=== PATIENT | female | born 1960 | race Caucasian/White ===

== ENCOUNTER → 2024-06-18 11:24 | Outpatient (CLI) | payer OTHER, SELFPAY ==
--- NOTE | 2024-06-18 11:30 | DI.MG.S_ITS ---
BILATERAL DIGITAL SCREENING MAMMOGRAM 3D/2D WITH CAD: 06/18/2024 CLINICAL: Routine screening. Family history of breast cancer. Comparison is made to exam dated: 03/25/2021 mammogram - outside location. Both breasts are heterogeneously dense, which may obscure small masses (category c / 51-75% glandular tissue). Current study was also evaluated with a Computer Aided Detection (CAD) system. There is a biopsy clip in the left breast. No significant masses, calcifications, or other findings are seen in either breast. There has been no significant interval change. IMPRESSION: BENIGN There is no mammographic evidence of malignancy. A 1 year screening mammogram is recommended. Based on Tyrer-Cuzick model (a risk assessment model), the patient's lifetime risk is 25.4% and her 10 year risk is 12.4%. If a patient has an elevated risk, a more comprehensive evaluation should be considered and/or a referral to a genetic counselor. The [place] [employer], [place] [employer], and NCCN Guidelines advise the consideration of Breast MRI as an adjunct to screening mammography in patients whose Lifetime risk to develop breast cancer is 20% or higher. This exam was interpreted at Station ID: [id number]. NOTE: For mammograms, a report in lay terms will be sent to the patient. Approximately 15% of breast malignancies will not be visualized mammographically. In the management of a palpable breast mass, a negative mammogram must not discourage biopsy of a clinically suspicious lesion. Electronically Signed By: Ester Mann M.D., Ph.D. adelaide/barbara:06/25/2024 08:13:27 letter sent: Normal Exam ACR BI-RADS Category 2: Benign Finding(s) 3342F
== END ==
LOC: MAMMO 11:29
PROVIDERS: Referring Provider Family Medicine Addiction Medicine; Visit Provider Family Medicine Addiction Medicine
DX: Z12.31 Encounter for screening mammogram for malignant neoplasm of breast (principal); Z80.3 Family history of malignant neoplasm of breast; R92.333 Mammographic heterogeneous density, bilateral breasts
CPT/HCPCS: 77063; 77067

== ENCOUNTER 2024-07-19 09:22 | Emergency (ER) | payer OTHER, SELFPAY ==
[2024-07-19] VITALS (8 sets, daily range): BP systolic 159–168; BP diastolic 74–81; PULSE 66–87; RESP 14–20; TEMP 36.5; O2SAT 97–100; BMI 23.3
--- NOTE | 2024-07-19 09:26 | DI.RAD.S_ITS ---
PROCEDURE: XR HIP W PEL IF DONE RT 3V INDICATIONS: Right hip pain after injury TECHNIQUE: AP pelvis and lateral view of the hip acquired. Three images. COMPARISON: None. FINDINGS: Patient is status post right hip arthroplasty, with hardware components in expected positions. Moderate degenerate changes left hip with joint space narrowing and osteophytes. Large amount of stool throughout the colon and rectum partially imaged in a pattern of constipation/obstipation. Numerous 1 mm-4 mm calcifications in the pelvis commonly phleboliths. Mild vascular calcifications. No radiographic evidence of displaced fracture, dislocation or high attenuation soft tissue foreign body. Artifacts from overlying clothing and other extrinsic artifacts partially limit radiographic detail IMPRESSION: Right hip arthroplasty, without radiographic evidence of complication. Moderate degenerate changes left hip. Large amount of stool pattern of constipation/obstipation. Dictated by: Calixto Britton M.D. on 07/19/2024 at 10:15 Approved by: Calixto Britton M.D. on 07/19/2024 at 10:20
--- NOTE | 2024-07-19 10:03 | ED_ITS ---
HPI - Fall General Chief Complaint: Fall Stated Complaint: R Hip Pain Time Seen by Provider: 07/19/24 09:26 Source: patient and EMS Mode of arrival: EMS History of Present Illness HPI Narrative: Patient is a 64-year-old female who arrived by EMS for evaluation of right hip pain. Patient states that her right hip started to hurt last evening. She did take Tylenol last evening. She states it is an intermittent pain. He was hurting this morning but the time of my evaluation she is not having any discomfort. She uses a walker at home all the time. She did fall multiple times yesterday but this is baseline for her. States she had not specifically injure her left hip when she fell. She denies any abdominal pain. Review of Systems Review of Systems Narrative: See HPI Patient History Social History Smoking Status: Never smoker Smoking Status: Never smoker alcohol intake frequency: 0-2 drinks per day Substance Use Type: does not use Exam Initial Vital Signs Initial Vital Signs: Vital Signs Pulse Rate 87 07/19/24 09:32 Respiratory Rate 16 07/19/24 09:32 Pulse Oximetry 99 07/19/24 09:32 Const General: cooperative, comfortable and No ill appearing HENMT Head: normal to inspection and normocephalic Resp Effort & Inspection: normal respiratory effort Cardio Rate: regular rate Neuro General: patient alert and patient awake Extrem Other: She reports discomfort along the lateral aspect of the right hip. It is not worse with palpation. She was able to flex and extend at the knee and at the hip on the right. No discomfort with internal and external rotation. Course Orders Ordered: ED Orders 07/19/24 09:26 XR hip w pel if done RT 2V Stat Discontinued Medications Acetaminophen (Acetaminophen 325 Mg Tablet) 650 mg PO NOW ONE Stop: 07/19/24 10:06 Last Admin: 07/19/24 10:10 Dose: 650 mg Vital Signs Vital signs: Vital Signs - 8 hr 07/19/24 09:32 07/19/24 09:33 07/19/24 09:33 Temperature Pulse Rate 87 84 Respiratory Rate 16 16 Blood Pressure 168/81 H Pulse Oximetry 99 99 Oxygen Delivery Method 07/19/24 09:37 Temperature 97.7 F Pulse Rate 82 Respiratory Rate 20 Blood Pressure 168/81 H Pulse Oximetry 100 Oxygen Delivery Method Room Air MDM - Fall Imaging Data Extremity x-ray #1: Radiologist's Impression: PROCEDURE: XR HIP W PEL IF DONE RT 3V INDICATIONS: Right hip pain after injury TECHNIQUE: AP pelvis and lateral view of the hip acquired. Three images. COMPARISON: None. FINDINGS: Patient is status post right hip arthroplasty, with hardware components in expected positions. Moderate degenerate changes left hip with joint space narrowing and osteophytes. Large amount of stool throughout the colon and rectum partially imaged in a pattern of constipation/obstipation. Numerous 1 mm-4 mm calcifications in the pelvis commonly phleboliths. Mild vascular calcifications. No radiographic evidence of displaced fracture, dislocation or high attenuation soft tissue foreign body. Artifacts from overlying clothing and other extrinsic artifacts partially limit radiographic detail IMPRESSION: Right hip arthroplasty, without radiographic evidence of complication. Moderate degenerate changes left hip. Large amount of stool pattern of constipation/obstipation. [facility] Narrative Medical decision making narrative: No fractures noted on the x-rays. Has had intermittent pain. Patient ambulated here in the emergency department at baseline with a walker. She was given Tylenol. She was not having any pain currently. Advised patient that she can walk on her right leg as tolerated. Advised she contact her primary doctor for follow-up. She was given return precautions. She expressed understanding and agreement. Discharge Plan Departure Patient Disposition: Home Clinical Impression: Acute pain of right hip Instructions: How to Prevent Falls Activity Restrictions/Additional Instructions: You can take Tylenol as needed. You can walk on your right leg as tolerated. Return to the emergency department for new symptoms. Stand Alone Forms: Patient Portal/API
[2024-07-19] MEDS: ACETAMINOPHEN 325 MG TABLET 650 MG PO (10:10)
--- NOTE | 2024-07-19 10:21 | PC.NURSE ---
Ambulation Assessment - Patient was able to ambulate at her baseline level. Pain unrelated to the reason the patient is here in the ER
== END 2024-07-19 11:15 | disposition home or self-care (01) ==
PROVIDERS: Emergency Provider Emergency Medicine
DX: M25.551 Pain in right hip (principal); W18.30XA Fall on same level, unspecified, initial encounter; R29.6 Repeated falls
CPT/HCPCS: 73502; 99283

== ENCOUNTER → 2024-08-27 10:55 | Outpatient (CLI) | payer OTHER, SELFPAY ==
--- NOTE | 2024-08-27 10:56 | DI.RAD.S_ITS ---
PROCEDURE: XR DEXA AXIAL SKELETON INDICATIONS: OSTEOPOROSIS SCREENING COMPARISON: None. FINDINGS: Lumbar Spine: Bone mineral density 0.976 g/cm2, T score -0.6, normal. Left Hip: Bone mineral density 0.615 g/cm2, T score -2.1, osteopenia. Left Femoral Neck: Bone mineral density 0.785 g/cm2, T score of -1.3, osteopenia. Left Forearm: Bone mineral density 0.976 g/cm2, T score -0.6, normal. Fracture Risk Calculation (when applicable): 10-year fracture risk of a major osteoporotic fracture 9.9 percent and of a hip fracture 1.6 percent. (T score greater or equal to -1.0 to: NORMAL) (T score from -1.1 to -2.4: OSTEOPENIA) (T score less than or equal to -2.5: OSTEOPOROSIS) IMPRESSION: Osteopenia. Follow-up guidelines as follows: Osteoporosis: Consider a repeat DEXA and Vertebral Fracture Assessment (VFA) exam in 2 years or sooner if medically necessary, to reassess this patient's status. Osteopenia: Consider a repeat DEXA in 2-3 years to reassess this patient's status, or if there is a new clinical indication. Normal: Consider a repeat DEXA in 5 years or sooner, or if there is a new clinical indication. All treatment decisions require clinical judgment and consideration of individual patient factors, including patient preferences, comorbidities, previous drug use, risk factors not captured in the FRAX model (e.g., frailty, falls, vitamin D deficiency, increased bone turnover, interval significant decline in bone density ) and possible under- or over-estimation of fracture risk by FRAX. In addition, the NOF Guide recommends that FDA-approved medical therapies be considered in postmenopausal women and men age >= 50 years with a: * Hip or vertebral (clinical or morphometric) fracture * T-score of <=-2.5 at the spine or hip * Ten-year fracture probability by FRAX of >= 3% for hip fracture or >=20% for major osteoporotic fracture. People with diagnosed cases of osteoporosis or at high risk for fracture should have regular bone mineral density tests. For patients eligible for Medicare, routine testing is allowed once every 2 years. The testing frequency can be increased to one year for patients who have rapidly progressing disease, those who are receiving or discontinuing medical therapy to restore bone mass, or have additional risk factors. Dictated by: Kemar Desai M.D. on 08/27/2024 at 14:13 Approved by: Kemar Desai M.D. on 08/27/2024 at 14:14
== END ==
PROVIDERS: Referring Provider Family Medicine Addiction Medicine; Visit Provider Family Medicine Addiction Medicine
DX: M85.852 Other specified disorders of bone density and structure, left thigh (principal)
CPT/HCPCS: 77080; 77081